=== PATIENT | female | born 1995 | race Caucasian/White ===

== ENCOUNTER → 2018-02-19 | Outpatient (CLI) | payer OTHER ==
[~2018-02-19] MED LIST: ASCO500C43 PO; CLR10 PO
--- NOTE | 2018-02-19 11:53 | DIAGNOSTIC IMAGING REPORT ---
L KNEE 4 OR MORE CLINICAL HISTORY: Left knee pain. COMPARISON: None FINDINGS: Alignment of the left knee is anatomic. There are postoperative findings consistent with an ACL reconstruction. Joint spaces are preserved. No fracture or suspicious lesion is present. No joint effusion is identified. IMPRESSION: 1. Status post left ACL reconstruction. 2. No fracture. 3. Preserved joint spaces. Electronically signed by: Royer Kitchen M.D. 02/19/2018 11:52 AM Dictated Date/Time: 02/19/2018 11:51 AM
== END | disposition home or self-care (01) ==
LOC: C.RDSM 10:36
PROVIDERS: ATTEND Family Medicine
DX: M25.569 Pain in unspecified knee (principal)

== ENCOUNTER → 2018-02-20 | Outpatient (CLI) | payer OTHER ==
--- NOTE | 2018-02-20 09:00 | DIAGNOSTIC IMAGING REPORT ---
MRI LEFT KNEE NO CONTRAST CLINICAL HISTORY: S89.92XA left knee pain. Inability to bear weight. History of prior surgery. COMPARISON STUDY: Conventional radiographic study dated 02/19/2018 FINDINGS: Imaging was performed in the axial, sagittal, and coronal planes. There are no areas of marrow replacement to indicate neoplasm The quadriceps and patellar tendons appear intact. There are postsurgical changes of an ACL repair. The graft appears intact. The posterior cruciate ligament appears intact. The medial and lateral collateral ligaments appear intact. There is a 6 x 4 mm chondral defect involving the lateral femoral condyle with mild subchondral edema. Evaluation the menisci are somewhat limited due to artifact from the patient's ACL repair. No acute tears of the medial meniscus are visualized. The lateral meniscus is truncated. There is an age-indeterminate radial tear. There is a small joint effusion. IMPRESSION: 1. Postsurgical changes are prior ACL repair. The graft appears intact 2. Small joint effusion 3. Truncation of the lateral meniscus. Age-indeterminate radial tear. 4. 6 x 4 mm chondral defect within the lateral femoral condyle with subjacent marrow edema Electronically signed by: Kilo Werner M.D. 02/20/2018 8:59 AM Dictated Date/Time: 02/20/2018 8:53 AM
== END | disposition home or self-care (01) ==
LOC: C.MRI 07:57
PROVIDERS: ATTEND Family Medicine
DX: S89.92XA Unspecified injury of left lower leg, initial encounter (principal); X58.XXXA Exposure to other specified factors, initial encounter; M25.462 Effusion, left knee; M23.362 Other meniscus derangements, other lateral meniscus, left knee; M24.10 Other articular cartilage disorders, unspecified site

== ENCOUNTER → 2018-02-22 | Outpatient (CLI) | payer OTHER | END | disposition home or self-care (01) | LOC: C.RDSM 18:15 | PROVIDERS: ATTEND Orthopaedic Surgery | DX: M25.562 Pain in left knee (principal) ==